=== PATIENT | female | born 1995 | race Caucasian/White ===

== ENCOUNTER 2020-10-21 01:52 | Emergency (ER) | payer MEDICAID, SELFPAY ==
[2020-10-21 15:01] LABS: SARS-CoV-2 PCR by NAA Not Detected (NotDetected)
== END 2020-10-21 02:24 | disposition home or self-care (01) ==
LOC: MADERS 01:52
DX: O99.891 Other specified diseases and conditions complicating pregnancy (principal); R05 Cough; R09.81 Nasal congestion; R51.9 Headache, unspecified; R43.8 Other disturbances of smell and taste; Z20.822 Contact with and (suspected) exposure to COVID-19; O99.331 Smoking (tobacco) complicating pregnancy, first trimester; F17.200 Nicotine dependence, unspecified, uncomplicated
CPT/HCPCS: 99284; U0003; U0005